=== PATIENT | female | born 1955 | race Caucasian/White ===

== ENCOUNTER 2019-11-20 14:07 | Emergency (ER) | payer OTHER, SELFPAY ==
--- NOTE | ~2019-11-20 | CT_ITS ---
EXAMINATION: CT brain wo con DATE: 11/20/2019 15:42 INDICATION: Dizziness, nausea and vomiting TECHNIQUE: Computed tomography (CT) of the head was performed without intravenous contrast. Sagittal and coronal reconstructions were performed. The mA was adjusted according to patient size. Iterative reconstruction technique was employed. The dose-length product was 605.33 mGy-cm. COMPARISON: None FINDINGS: No acute intracranial hemorrhage, acute infarction or abnormal extra axial fluid collection. There is mild scattered white matter hypoattenuation consistent with chronic small vessel ischemic disease. V entricles are normal and symmetric. No mass/mass effect. Mild mucosal thickening the bilateral ethmoi d sinuses. The orbits and mastoid air cells are normal. Intracranial calcified cerebral atheroscleros is is noted. IMPRESSION: 1. Mild scattered white matter hypoattenuation consistent with chronic small vessel ischemic disease. No acute intracranial process. Reviewed, dictated and finalized at location A. IMPRESSION: 1. Mild scattered white matter hypoattenuation consistent with chronic small ve ssel ischemic disease. No acute intracranial process.
[2019-11-20 14:11] VITALS: BP 140/65; PULSE 86; RESP 15; TEMP 36.4; O2SAT 97
--- NOTE | 2019-11-20 14:58 | ED.GENADULT ---
HPI - General Adult General Chief complaint: Nausea/Vomiting/Diarrhea Stated complaint: N/V Time Seen by Provider: 11/20/19 14:41 Source: patient Mode of arrival: EMS Limitations: no limitations History of Present Illness HPI narrative: 64 years old white female brought to the emergency room by ambulance because was sitting at work, turning her head to the right suddenly developed dizziness and everything started spinning around associated with nausea and frequent vomiting. Patient denies any fever, chills, headache, vision disorder, sore throat, coughing, shortness of breath or chest pain. Patient also denies similar symptoms. Patient reports eating with friends 3 days ago subsequently everybody haD diarrhea lasted for 16 to 24 hours. Patient was doing great yesterday. And today. Patient reports some discomfort at the right ear started yesterday like full of water. Related Data Home Medications Medication Instructions Recorded Confirmed lisinopril 11/20/19 Allergies Allergy/AdvReac Type Severity Reaction Status Date / Time No Known Allergies Allergy Verified 11/20/19 14:16 Review of Systems Review of Systems: Narrative: CONSTITUTIONAL: Denies fever, chills, or sweats. EYES: Denies visual changes, redness, or discharge. ENT: Denies rhinorrhea, congestion, sore throat, or otalgia. CARDIOVASCULAR: Denies chest pain, palpitations, or edema. RESPIRATORY: Denies cough or dyspnea. GASTROINTESTINAL: Denies abdominal pain, nausea, vomiting, or diarrhea. GENITOURINARY: Denies dysuria or hematuria. SKIN: Denies rash or itching. MUSCULOSKELETAL: Denies back pain, joint pain, or myalgia. NEUROLOGIC: Denies headache, numbness, or weakness. PSYCHIATRIC: Denies anxiety or depression. PMFSH Past Medical History Medical History (Updated 11/20/19 @ 18:06 by Corry Guzman MD) Hyperlipidemia Hypertension Social History Social History (Updated 11/20/19 @ 15:03 by Corry Guzman MD) Tobacco type: cigarettes Alcohol intake: former Gender identity (if verbalized by the patient): Female Exam Narrative: Exam Narrative: General appearance: Well-developed, well-nourished Skin: Normal color Head: Normocephalic, nontraumatic Eyes: Clear conjunctiva ENT: Oropharynx normal, ears normal, nose normal Neck: Supple, nontender Chest and respiratory: Airway patent, no respiratory distress, no accessory muscle use Heart: Regular rate/rhythm Abdomen: Soft, nontender, no organomegaly, quiet bowel sounds Vascular: Normal peripheral pulses, normal capillary refill. Musculoskeletal: Normal range of motion, nontender back Neurologic: Alert and oriented ?3, [employer] is normal as tested, no gross motor deficit. Patient did dizzy if she turns her head or get out of bed or do any movement. Course Course Emergency Course: Improving Vital Signs Vital signs: Vital Signs Temperature 36.4 C L 11/20/19 14:11 Pulse Rate 86 11/20/19 14:11 Respiratory Rate 15 11/20/19 14:11 Blood Pressure 140/65 11/20/19 14:11 Pulse Oximetry 97 11/20/19 14:11 Temperature 36.4 C L 11/20/19 14:11 Pulse Rate 74 11/20/19 16:55 Respiratory Rate 17 11/20/19 16:55 Blood Pressure 130/66 11/20/19 16:55 Pulse Oximetry 99 11/20/19 16:55 Medical Decision Making [facility] Narrative Medical decision making narrative: Benign positional vertigo is my concern. My plan to get labs, CT head, give patient Valium, Antivert and Zofran. Further plan to follow Differential Diagnosis Differential Diagnosis: Vertigo, electrolyte imbalance, intracranial pathology. Vital Signs Vital Signs: Vital Signs Temperature 36.4 C L 11/20/19 14:11 Pulse Rate 86 11/20/19 14:11
[2019-11-20] MEDS: SODIUM CHLORIDE 0.9% IV 1,000 ML 999 ML IV CONT (15:18)
[2019-11-20 15:21] LABS: Basophils Absolute Auto 0.1 K/mm3 (0.0-0.1); Basophils Percent Auto 0.7 % (0.2-1.2); Eosinophils Absolute Auto 0.1 K/mm3 (0-0.3); Eosinophils Percent Auto 1.1 % (0-4.4); Hematocrit 41.6 % (37.0-47.0); Hemoglobin 14.1 g/dL (12.0-15.0); Immature Granulocyte Absolute 0.05 K/mm3 (0.00-0.031); Immature Granulocyte Percent A 0.5 % (0-0.5); Lymphocytes Absolute Auto 1.94 K/mm3 (0.9-3.2); Lymphocytes Percent Auto 20.4 % (18.3-44.2); Mean Corpuscular HGB Conc 33.9 g/dl (32-36); Mean Corpuscular Hemoglobin 32.2 pg (26-34); Mean Platelet Volume 10.9 fl (7.4-10.4); Monocytes Absolute Auto 0.9 K/mm3 (0.1-0.6); Monocytes Percent Auto 9.2 % (2.6-8.5); Neutrophils Absolute Auto 6.5 K/mm3 (1.3-6.7); Neutrophils Percent Auto 68.1 % (45.5-73.1); Platelet Count Result 215 k/mm3 (150-375); Red Blood Count 4.38 M/mm3 (4.2-5.4); Red Cell Distribution Width 12.6 % (11.5-14.5); White Blood Count 9.5 K/mm3 (4.5-10.0)
[2019-11-20] MEDS: ONDANSETRON INJ 4 MG/2 ML VIAL IV PUSH (15:23)
[2019-11-20] MEDS: MECLIZINE HCL 25 MG TABLET PO (15:24)
[2019-11-20 15:32] LABS: Alanine Aminotransferase 18 U/L (4-35); Albumin Level 3.9 g/dL (3.5-5.1); Alkaline Phosphatase 86 U/L (38-126); Anion Gap 5 mmol/L (8-16); Aspartate Amino Transferase 25 U/L (14-36); Bilirubin,Total 0.6 mg/dL (0.2-1.3); Blood Urea Nitrogen 12 mg/dL (7-17); Calcium 8.7 mg/dL (8.4-10.2); Carbon Dioxide 28 mmol/L (22-30); Chloride 102 mmol/L (98-107); Estimated CRCL calculation 61 ml/min; Estimated Glomerular Filt Rate > 60; Glucose 99 mg/dL (65-105); Potassium 3.9 mmol/L (3.4-5.0); Sodium 135 mmol/L (137-145)
[2019-11-20 16:43] LABS: Add Urine Microscopic? YES; Appearance Urine Clear (Clear); Bilirubin Urine Negative (Negative); Blood Urine Negative (Negative); Color Urine Yellow (Yellow); Glucose Urine UA Negative (Negative); Ketones Urine Trace mg/dL (Negative); Leukocyte Esterase Ur Negative LEU/UL (Negative); Mucus Urine Rare /lpf; Nitrate Urine Negative (Negative); Protein Urine Negative (Negative); Specific Grav Ur 1.016 (1.001-1.035); Squamous Epithelial Cell Urine Rare /hpf (Few); Urobilinogen Urine Negative mg/dL (<2.0); WBC Urine 0-3 /hpf
[2019-11-20 16:55] VITALS: BP 130/66; PULSE 74; RESP 17; O2SAT 99
[2019-11-20 18:27] VITALS: BP 139/78; PULSE 70; RESP 16; O2SAT 97
== END 2019-11-20 18:28 | disposition home or self-care (01) ==
PROVIDERS: Emergency Provider Emergency Medicine
DX: H81.10 Benign paroxysmal vertigo, unspecified ear (principal); E78.5 Hyperlipidemia, unspecified; I10 Essential (primary) hypertension; F17.210 Nicotine dependence, cigarettes, uncomplicated
CPT/HCPCS: 36415; 70450; 80053; 81001; 85025; 96361; 96374; 96375; 99284; A9270; J2405; J3360; J7030

== ENCOUNTER 2021-04-19 14:11 | Outpatient (CLI) | payer OTHER, SELFPAY ==
--- NOTE | ~2021-04-19 | XR_ITS ---
EXAMINATION: XR lumbar spine 2-3V DATE: 04/19/2021 14:32 INDICATION: Low back pain. TECHNIQUE: 3 views of lumbar spine were obtained. COMPARISON: None. FINDINGS: There is 10 degrees levoscoliosis of lumbar spine. There is 4 mm anterolisthesis of L5 on S 1. Vertebral body heights are normal. There is moderately decreased disc height at L2-L3, mildly decr eased disc height at L3-L4 and L4-L5, and severely decreased disc height at L5-S1. There are endplate osteophytes at all levels. There is multilevel facet joint osteoarthritis, severe bilaterally at L5- S1. IMPRESSION: 1. Severe lumbar spondylosis. 2. Lumbar levoscoliosis. Reviewed, dictated and finalized at location A. [facility]
== END 2021-04-19 14:12 | disposition home or self-care (01) ==
LOC: CHSIMG 14:14
PROVIDERS: PCP Family Medicine; Visit Provider Family Medicine
DX: M54.50 Low back pain, unspecified (principal)
CPT/HCPCS: 72100